=== PATIENT | female | born 2000 | race Caucasian/White ===

== ENCOUNTER 2018-09-24 13:15 | Emergency (ER) | payer MEDICAID ==
[~2018-09-24] VITALS: Ht 157.5 cm; Wt 60.0 kg
[2018-09-24] MEDS ORDERED: IBUPROFEN 400MG TABLET PO ONE (15:30)
[2018-09-24 17:45] VITALS: BP 107/58
== END 2018-09-24 17:46 | disposition home or self-care (01) ==
LOC: ER 13:15
DX: L84 Corns and callosities (principal); M25.775 Osteophyte, left foot
CPT/HCPCS: 73630; 81025; 99283